=== PATIENT | female | born 1990 | race Caucasian/White ===

== ENCOUNTER 2017-03-07 11:57 | Outpatient (CLI) | payer OTHER ==
[~2017-03-07 11:57] MED LIST: ADVIL100 MG; DICLOFENAC SODI50 MG PO; FLONASE16 GM NS; IOPHEN DM-100 MG/5 M PO; TESSALON200 MG PO; ZITHROMAX500 MG PO; ZYRTEC10 MG PO
== END 2017-03-07 17:00 | disposition home or self-care (01) ==
LOC: MRI 11:57
DX: R51 Headache (principal); M79.602 Pain in left arm; R20.0 Anesthesia of skin
CPT/HCPCS: 70540

== ENCOUNTER 2017-05-20 19:27 | Emergency (ER) | payer OTHER ==
[~2017-05-20] VITALS: Ht 162.6 cm; Wt 63.5 kg
[2017-05-20] MEDS ORDERED: VERAPAMIL ER120 MG (19:56)
[2017-05-20] MEDS ORDERED: MEDROLPACK (19:56)
== END 2017-05-20 20:48 | disposition home or self-care (01) ==
LOC: ER 19:27
DX: R51 Headache (principal)

== ENCOUNTER → 2017-05-22 17:00 | Outpatient (CLI) | payer OTHER ==
[~2017-05-22 17:00] MED LIST changes: +MEDROLPACK; +VERAPAMIL ER120 MG
== END | disposition home or self-care (01) ==
LOC: LAB 17:00
DX: M31.6 Other giant cell arteritis (principal)

== ENCOUNTER → 2017-05-25 | Outpatient (CLI) | payer OTHER | END | disposition home or self-care (01) | LOC: PPHC 13:36 | DX: Z00.8 Encounter for other general examination (principal); R51 Headache ==

== ENCOUNTER → 2017-06-12 | Outpatient (CLI) | payer OTHER | END | disposition home or self-care (01) | LOC: PPHC 15:59 | DX: Z00.8 Encounter for other general examination (principal) ==

== ENCOUNTER → 2017-06-15 | Outpatient (CLI) | payer OTHER | END | disposition home or self-care (01) | LOC: RAD 15:35 | DX: M62.838 Other muscle spasm (principal) ==

== ENCOUNTER 2017-08-09 14:49 | Outpatient (CLI) | payer OTHER | END 2017-08-09 15:39 | disposition home or self-care (01) | LOC: MRI 14:49 | DX: R51 Headache (principal); M31.6 Other giant cell arteritis | CPT/HCPCS: 70551 ==

== ENCOUNTER 2017-09-29 06:44 | Outpatient (CLI) | payer OTHER | END 2017-09-29 06:46 | disposition home or self-care (01) | LOC: LAB 06:44 | DX: G50.0 Trigeminal neuralgia (principal) ==

== ENCOUNTER 2017-10-26 08:36 | Outpatient (CLI) | payer OTHER | END 2017-10-26 09:04 | disposition home or self-care (01) | LOC: LAB 08:36 | DX: Z00.00 Encounter for general adult medical examination without abnormal findings (principal); R53.83 Other fatigue; Z11.3 Encounter for screening for infections with a predominantly sexual mode of transmission ==

== ENCOUNTER → 2017-12-26 14:54 | Outpatient (CLI) | payer OTHER | END | disposition home or self-care (01) | LOC: LAB 14:54 | DX: J11.1 Influenza due to unidentified influenza virus with other respiratory manifestations (principal) ==

== ENCOUNTER 2018-05-08 08:09 | Outpatient (CLI) | payer OTHER | END 2018-05-08 15:00 | disposition home or self-care (01) | LOC: LAB 08:09 | DX: R53.83 Other fatigue (principal); E78.00 Pure hypercholesterolemia, unspecified; R22.2 Localized swelling, mass and lump, trunk ==

== ENCOUNTER 2018-08-01 14:16 | Outpatient (CLI) | payer OTHER | END 2018-08-01 15:00 | disposition home or self-care (01) | LOC: LAB 14:16 | DX: J11.1 Influenza due to unidentified influenza virus with other respiratory manifestations (principal); J11.89 Influenza due to unidentified influenza virus with other manifestations ==

== ENCOUNTER 2018-08-06 10:34 | Outpatient (CLI) | payer OTHER ==
[~2018-08-06] VITALS: Ht 152.4 cm; Wt 61.2 kg
== END 2018-08-06 10:50 | disposition home or self-care (01) ==
LOC: OFIC 805 10:34
DX: R04.0 Epistaxis (principal); H61.23 Impacted cerumen, bilateral; H91.90 Unspecified hearing loss, unspecified ear

== ENCOUNTER 2018-10-09 08:05 | Outpatient (CLI) | payer OTHER | END 2018-10-09 08:24 | disposition home or self-care (01) | LOC: LAB 08:05 | DX: Z00.00 Encounter for general adult medical examination without abnormal findings (principal); I10 Essential (primary) hypertension; E03.8 Other specified hypothyroidism; E78.00 Pure hypercholesterolemia, unspecified; N39.0 Urinary tract infection, site not specified; Z11.4 Encounter for screening for human immunodeficiency virus [HIV]; E55.9 Vitamin D deficiency, unspecified; Z21 Asymptomatic human immunodeficiency virus [HIV] infection status; R79.89 Other specified abnormal findings of blood chemistry ==

== ENCOUNTER 2018-10-16 08:33 | Outpatient (CLI) | payer OTHER | END 2018-10-16 09:49 | disposition home or self-care (01) | LOC: LAB 08:33 | DX: N39.0 Urinary tract infection, site not specified (principal) ==

== ENCOUNTER → 2020-10-23 10:58 | Outpatient (CLI) | payer OTHER | END | disposition home or self-care (01) | LOC: LAB 10:58 | PROVIDERS: ATTEND Emergency Medicine Pediatric Emergency Medicine | DX: Z03.818 Encounter for observation for suspected exposure to other biological agents ruled out (principal) ==

== ENCOUNTER 2020-11-06 14:06 | Outpatient (CLI) | payer OTHER | END 2020-11-06 17:30 | disposition home or self-care (01) | LOC: LAB 14:06 | PROVIDERS: ATTEND General Practice | DX: R05 Cough (principal); R06.02 Shortness of breath; R50.9 Fever, unspecified; Z03.818 Encounter for observation for suspected exposure to other biological agents ruled out; Z20.828 Contact with and (suspected) exposure to other viral communicable diseases ==

== ENCOUNTER 2020-12-08 08:00 | Outpatient (CLI) | payer OTHER | END 2020-12-08 08:30 | disposition home or self-care (01) | LOC: PPH VACUNA 08:00 | PROVIDERS: ATTEND Emergency Medicine Pediatric Emergency Medicine | DX: Z23 Encounter for immunization (principal) ==

== ENCOUNTER 2021-02-01 14:58 | Outpatient (CLI) | payer OTHER | END 2021-02-01 15:10 | disposition home or self-care (01) | LOC: SONOGRAMA 14:58 | PROVIDERS: ATTEND Internal Medicine Cardiovascular Disease | DX: E03.8 Other specified hypothyroidism (principal); E04.2 Nontoxic multinodular goiter ==

== ENCOUNTER 2021-02-05 09:48 | Outpatient (CLI) | payer OTHER | END 2021-02-05 10:17 | disposition home or self-care (01) | LOC: LAB 09:48 | PROVIDERS: ATTEND Internal Medicine Cardiovascular Disease | DX: I10 Essential (primary) hypertension (principal); E11.9 Type 2 diabetes mellitus without complications; E03.8 Other specified hypothyroidism; E78.2 Mixed hyperlipidemia; E55.9 Vitamin D deficiency, unspecified ==

== ENCOUNTER 2021-02-23 06:35 | Outpatient (CLI) | payer OTHER | END 2021-02-23 15:00 | disposition home or self-care (01) | LOC: LAB 06:35 | PROVIDERS: ATTEND General Practice | DX: R05.8 Other specified cough (principal); R50.9 Fever, unspecified; R06.02 Shortness of breath; Z03.818 Encounter for observation for suspected exposure to other biological agents ruled out; Z20.828 Contact with and (suspected) exposure to other viral communicable diseases ==

== ENCOUNTER 2021-03-07 21:07 | Emergency (ER) | payer OTHER ==
[~2021-03-07] VITALS: Ht 157.5 cm; Wt 68.0 kg
[2021-03-07] MEDS ORDERED: MUCINEX DM ER1 EAC1 PO (23:43)
[2021-03-07] MEDS ORDERED: PROMETH-CODEIN 65 ML PO (23:43)
[2021-03-07] MEDS ORDERED: DICLOFENAC POTA50 MG PO (23:43)
[2021-03-07] MEDS ORDERED: AIRBORNE EFFER1 EACH PO (23:43)
== END 2021-03-08 01:35 ==
LOC: ER 21:07
DX: U07.1 COVID-19 (principal)

== ENCOUNTER 2021-06-03 06:37 | Outpatient (CLI) | payer OTHER ==
[~2021-06-03 06:37] MED LIST changes: +AIRBORNE EFFER1 EACH PO; +DICLOFENAC POTA50 MG PO; +MUCINEX DM ER1 EAC1 PO; +PROMETH-CODEIN 65 ML PO
== END 2021-06-03 10:00 | disposition home or self-care (01) ==
LOC: LAB 06:37
PROVIDERS: ATTEND Obstetrics & Gynecology
DX: I10 Essential (primary) hypertension (principal); Z00.00 Encounter for general adult medical examination without abnormal findings; E03.9 Hypothyroidism, unspecified; E78.00 Pure hypercholesterolemia, unspecified; N39.0 Urinary tract infection, site not specified; Z11.4 Encounter for screening for human immunodeficiency virus [HIV]; E55.9 Vitamin D deficiency, unspecified; Z21 Asymptomatic human immunodeficiency virus [HIV] infection status; R79.9 Abnormal finding of blood chemistry, unspecified; R79.89 Other specified abnormal findings of blood chemistry

== ENCOUNTER 2021-08-03 14:54 | Outpatient (CLI) | payer OTHER | END 2021-08-03 15:22 | disposition home or self-care (01) | LOC: EDBD 14:54 → LAB 14:54 | PROVIDERS: ATTEND General Practice | DX: J02.9 Acute pharyngitis, unspecified (principal) ==

== ENCOUNTER → 2022-04-14 | Emergency (ER) | payer OTHER ==
[~2022-04-14] VITALS: Ht 157.5 cm; Wt 77.1 kg
[~2022-04-14] MED LIST changes: +IPRATROPIU0.2 MG/1 M IH; +LEVOFLOXACIN750 MG PO; +MEDROLPACK PO
== END | disposition home or self-care (01) ==
LOC: ER 09:23
DX: J20.9 Acute bronchitis, unspecified (principal)

== ENCOUNTER 2022-05-06 11:47 | Outpatient (CLI) | payer OTHER | END 2022-05-06 12:10 | disposition home or self-care (01) | LOC: SONOGRAMA 11:47 | PROVIDERS: ATTEND Internal Medicine Cardiovascular Disease | DX: E03.9 Hypothyroidism, unspecified (principal) ==

== ENCOUNTER 2022-05-12 08:30 | Emergency (ER) | payer OTHER ==
[~2022-05-12] VITALS: Ht 157.5 cm; Wt 72.6 kg
[2022-05-12] MEDS ORDERED: CEFDINIR300 MG PO (13:58)
== END 2022-05-12 14:32 | disposition home or self-care (01) ==
LOC: ER 08:30
DX: J40 Bronchitis, not specified as acute or chronic (principal); Z88.6 Allergy status to analgesic agent; Z20.822 Contact with and (suspected) exposure to COVID-19

== ENCOUNTER → 2022-05-13 | Outpatient (CLI) | payer OTHER ==
[~2022-05-13] MED LIST changes: +CEFDINIR300 MG PO
== END | disposition home or self-care (01) ==
LOC: TOM 10:16
PROVIDERS: ATTEND Internal Medicine Pulmonary Disease
DX: R06.02 Shortness of breath (principal); R06.09 Other forms of dyspnea; Z86.16 Personal history of COVID-19

== ENCOUNTER 2022-12-08 08:23 | Outpatient (CLI) | payer OTHER | END 2022-12-08 08:25 | disposition home or self-care (01) | LOC: SONOGRAMA 08:23 | PROVIDERS: ATTEND Pathology Anatomic Pathology & Clinical Pathology | DX: D34 Benign neoplasm of thyroid gland (principal); E04.9 Nontoxic goiter, unspecified ==

== ENCOUNTER 2023-02-02 15:36 | Outpatient (CLI) | payer OTHER | END 2023-02-02 15:44 | disposition home or self-care (01) | LOC: RAD 15:36 | PROVIDERS: ATTEND Orthopaedic Surgery | DX: M25.572 Pain in left ankle and joints of left foot (principal); Z88.6 Allergy status to analgesic agent ==

== ENCOUNTER 2023-04-25 10:39 | Outpatient (CLI) | payer OTHER | END 2023-04-25 10:43 | disposition home or self-care (01) | LOC: MRI 10:39 | PROVIDERS: ATTEND Orthopaedic Surgery | DX: M79.672 Pain in left foot (principal) | CPT/HCPCS: 73718 ==

== ENCOUNTER 2024-08-01 08:49 | Emergency (ER) | payer OTHER ==
[~2024-08-01] VITALS: Ht 157.5 cm; Wt 75.7 kg
[2024-08-01] MEDS ORDERED: XYZAL5 MG PO (09:09)
[2024-08-01] MEDS ORDERED: METHYLPREDNISOLONE SOD SUCC 125 MG VIAL ONE (09:24)
[2024-08-01] MEDS ORDERED: CEFTRIAXONE SODIUM 1,000 MG VIAL ONE (09:24)
[2024-08-01] MEDS ORDERED: CEFTRIAXONE SODIUM 1,000 MG VIAL IV ONE (09:30)
[2024-08-01] MEDS ORDERED: LEVALBUTEROL HCL 1.25 MG/3 ML SOLUTION IH ONE ×2 (09:30→09:40)
[2024-08-01] MEDS ORDERED: IPRATROPIUM BROMIDE 0.5 MG/2.5 ML AMPUL.NEB IH ONE ×2 (09:30→09:41)
[2024-08-01] MEDS ORDERED: MONTELUKAST SODIUM 10 MG TABLET PO ONE (09:30)
[2024-08-01] MEDS ORDERED: METHYLPREDNISOLONE SOD SUCC 125 MG VIAL IV ONE (09:30)
[2024-08-01 09:52] LABS: BASO % 0.4 % (0.1-1.2); EOS # 0.04 (0.04-0.54); EOS % 0.6 % (0.7-7.0); HEMATOCRIT 40.4 % (34.1-44.9); HEMOGLOBIN 13.4 g/dL (11.2-15.7); LYMPH # 2.17 (1.18-3.74); MEAN CORPUSCULAR HEMOGLOBIN 29.9 pg (25.6-32.2); MONO # 0.74 (0.24-0.82); MONO % 10.2 % (4.7-12.5); NEUT # 4.24 (1.56-6.13); NEUT % 58.5 % (34.0-71.1); PLATELET COUNT 393 K/uL (163-369); RED BLOOD COUNT 4.48 M/uL (3.93-5.22)
[2024-08-01 10:16] LABS: COVID-19 AG NEGATIVE (NEGATIVE); INFLUENZA A AG NEGATIVE (NEGATIVE)
[2024-08-01] MEDS ORDERED: SINGULAIR10 MG PO (10:59)
[2024-08-01] MEDS ORDERED: BENZONATATE200 M1 PO (10:59)
[2024-08-01] MEDS ORDERED: BENZONATATE 200 MG CAPSULE PO ONE (11:15)
== END 2024-08-01 11:17 | disposition home or self-care (01) ==
LOC: ER 08:59
PROVIDERS: General Practice
DX: R05.8 Other specified cough (principal); Z88.6 Allergy status to analgesic agent; J20.9 Acute bronchitis, unspecified; Z20.822 Contact with and (suspected) exposure to COVID-19